=== PATIENT | female | born 1985 | race Caucasian/White ===

== ENCOUNTER → 2018-05-02 10:48 | Outpatient (CLI) | payer OTHER, SELFPAY ==
--- NOTE | 2018-05-02 10:52 | DI.US.S_ITS ---
PROCEDURE: US PELVIC COMPLETE INDICATIONS: Pelvic/ovarian pain TECHNIQUE: Real-time scanning was performed of the pelvic organs, with image documentation. Additional endovaginal scanning was necessary due to incomplete visualization of the adnexal and endometrial structures by transabdominal scanning. COMPARISON: None. FINDINGS: Transabdominal scanning: Limited scanning through the kidneys shows no hydronephrosis. No pathologic free abdominal or pelvic fluid. Endovaginal scanning: Uterus: Uterus is normal in size at 4.0 x 5.3 x 7.9 cm. The endometrium measures are 5.0 mm in combined thickness. A centrally positioned IUD is noted within the endometrial space. Ovaries: The right ovary measures 2.9 x 2.3 x 4.0 cm, and contains a cyst with internal echogenicity measuring approximately 1.8 x 1.5 x 1.7 cm most likely representing a hemorrhagic right ovarian cyst. The left ovary measures 3.1 x 1.6 x 2.1 cm. IMPRESSION: Right-sided presumed hemorrhagic ovarian cyst measuring up to 1.8 cm is present as a likely cause for current right lower quadrant pain. Centrally positioned IUD seen within the endometrial space. Normal-appearing left ovary. No abnormal free fluid seen throughout the peritoneal space. Dictated by: Donnie Llamas M.D. on 05/02/2018 at 14:43 Approved by: Donnie Llamas M.D. on 05/02/2018 at 14:46
== END ==
PROVIDERS: Family Provider Family Medicine; PCP Family Medicine; Visit Provider Family Medicine
DX: R10.2 Pelvic and perineal pain (principal); N83.201 Unspecified ovarian cyst, right side; Z97.5 Presence of (intrauterine) contraceptive device
CPT/HCPCS: 76830; 76856